=== PATIENT | female | born 1995 | race Caucasian/White ===

== ENCOUNTER 2017-12-25 17:34 | Emergency (ER) | payer OTHER ==
[2017-12-25 17:45] VITALS: BMI 24.7
[2017-12-25 17:47] VITALS: BP 124/90; PULSE 99; RESP 22; TEMP 97.6; O2SAT 100
--- NOTE | 2017-12-25 18:47 | ED PDOC ---
Arrival/HPI - General Chief Complaint: Anxiety Time Seen by Provider: 12/25/17 18:46 Historian: Patient, Spouse, Family - History of Present Illness Narrative History of Present Illness (Text): 12/25/17 18:30 This 22 yo female with pmh anxiety, anemia, presents to this Emergency department with her complaining of anxiety x [employer]. Patient stated during a family argument, she developed anxiety, sob, and palpitation. Patient stated she "fainted". Patient admits similar symptoms in the past and she was told she had panic attacks. Patient is refusing labs, Chest X-ray at this time. Patient denies cp, vivas, fever, leg swelling, urinary symptoms, calf pain, nausea, or vomiting. Time/Duration: Other Context: Home Past Medical History - Provider Review Nursing Documentation Reviewed: Yes - Infectious Disease Hx of Infectious Diseases: None - Hematological/Oncological Hx Anemia: Yes Other/Comment: iron deficiency - Genitourinary/Gynecological Hx Urinary Tract Infection: Yes - Psychiatric Hx Substance Use: No Family/Social History - Physician Review Nursing Documentation Reviewed: Yes Smoking Status: Never Smoked Hx Alcohol Use: No Hx Substance Use: No Allergies/Home Meds Allergies/Adverse Reactions: Allergies No Known Allergies Allergy (Verified 12/25/17 17:45) Review of Systems - Review of Systems Constitutional: Normal. absent: Fatigue, Weight Change, Fevers Eyes: Normal ENT: Normal Respiratory: SOB. absent: Cough, Sputum, Wheezing Cardiovascular: Syncope. absent: Chest Pain, Edema, Calf Pain Gastrointestinal: Normal. absent: Abdominal Pain, Nausea Genitourinary Female: Normal. absent: Dysuria, Frequency, Hematuria Musculoskeletal: Normal Skin: Normal Neurological: Normal Endocrine: Normal Hemo/Lymphatic: Normal Psychiatric: Normal Physical Exam Vital Signs Temp Pulse Resp BP Pulse Ox 12/25/17 17:46 97.6 F 99 H 22 124/90 100 Temperature: Afebrile Blood Pressure: Normal Pulse: Regular Respiratory Rate: Normal Appearance: Positive for: Well-Appearing, Non-Toxic, Comfortable Pain Distress: None Mental Status: Positive for: Alert and Oriented X 3 - Systems Exam Head: Present: Atraumatic, Normocephalic Pupils: Present: PERRL Extroacular Muscles: Present: EOMI Conjunctiva: Present: Normal Mouth: Present: Moist Mucous Membranes Neck: Present: Normal Range of Motion Respiratory/Chest: Present: Clear to Auscultation, Good Air Exchange. No: Respiratory Distress, Accessory Muscle Use Cardiovascular: Present: Regular Rate and Rhythm, Normal S1, S2. No: Murmurs Abdomen: Present: Normal Bowel Sounds. No: Tenderness, Distention, Peritoneal Signs Back: Present: Normal Inspection Upper Extremity: Present: Normal Inspection. No: Cyanosis, Edema Lower Extremity: Present: Normal Inspection. No: Edema Neurological: Present: GCS=15, CN II-XII Intact, Speech Normal Skin: Present: Warm, Dry, Normal Color. No: Rashes Psychiatric: Present: Alert, Oriented x 3, Anxious. No: Suicidal Ideation, Homicidal Ideation, Delusional, Hallucinations, Intoxicated Medical Decision Making ED Course and Treatment: 12/25/17 19:08 Patient stated her symptoms have improved and she would like to have an EKG. She is refusing labs, cxr, or PES evaluation. She wants to sign AMA 12/25/17 19:09 Leaving Against Medical Advice (AMA): This patient is choosing to leave against medical advice. I have personally explained to the patient that choosing to do so may result in permanent bodily harm or . I have discussed at great length that without further evaluation and monitoring there may be unforeseen circumstances and/or deterioration causing permanent bodily harm or as a result of their choice. The patient is alert, oriented, and shows the mental capacity to make clear decisions regarding the patients health care at this time. The patient continues to wish to leave against medical advice. In light of the patients decision to leave AMA, follow-up has been recommended and the patient is aware of the importance of following up as instructed. The patient has been advised that they should return to the ED immediately if they change their mind at any time, or if their condition begins to change or worsen in any way. - RAD Interpretation Radiology Orders: 12/25/17 19:01 CHEST PORTABLE [RAD] Stat - EKG Interpretation Interpreted by ED Physician: Yes (Sinus tachycardia @ 104 bpm. Normal interval. No ST changes) Type: 12 lead EKG Comparison: No previous EKG avail. Disposition/Present on Arrival - Present on Arrival Any Indicators Present on Arrival: No History of DVT/PE: No History of Uncontrolled Diabetes: No Urinary Catheter: No History of Decub. Ulcer: No History Surgical Site Infection Following: None - Disposition Have Diagnosis and Disposition been Completed?: Yes Diagnosis: Anxiety, History of fainting Disposition: AGAINST MEDICAL ADVICE Disposition Time: 19:10 Condition: UNKNOWN Additional Instructions: return to emergency at any time for further evaluation Referrals: [facility] [Outside] - Follow up with primary [facility] [[facility]] - Follow up with primary Forms: [employer] ([place])
--- NOTE | 2017-12-26 10:38 | CARD ---
APPROVED REPORT EKG Measurement Heart [id number] <Conclusion> Sinus tachycardia Otherwise normal ECG
== END 2017-12-25 19:40 | disposition left against medical advice (07) ==
LOC: ED 17:34
DX: F41.9 Anxiety disorder, unspecified (principal); R55 Syncope and collapse

== ENCOUNTER 2018-10-18 10:04 | Outpatient (CLI) | payer OTHER | END 2018-10-18 10:05 | disposition home or self-care (01) | LOC: RAD 10:04 ==

== ENCOUNTER 2019-02-17 08:57 | Emergency (ER) | payer OTHER ==
[2019-02-17 09:08] VITALS: BMI 25.6
[2019-02-17 09:18] VITALS: RESP 18; TEMP 98.5
--- NOTE | 2019-02-17 09:25 | ED PDOC ---
Arrival/HPI - General Chief Complaint: Flu-like Symptoms Time Seen by Provider: 02/17/19 09:04 Historian: Patient - History of Present Illness Narrative History of Present Illness (Text): 02/17/19 09:55 24 y/o female with no significant PMH presents to the ED c/o subjective fever x 2 days. Associated sore throat, headache, dry cough, intermittent dysuria. Headache is mild, dull, frontal. Positive sick contact of who was sick with the same illness. No recent travel. Denies abdominal pain, nausea, vomiting, diarrhea, back pain, neck pain/stiffness, SOB, chest pain, dizziness, vision changes, numbness, weakness, paresthesias, or any other associated symptoms. Past Medical History - Provider Review Nursing Documentation Reviewed: Yes Primary Care Provider: Vamsi Anand - Infectious Disease Hx of Infectious Diseases: None - Hematological/Oncological Hx Anemia: Yes Other/Comment: iron deficiency - Genitourinary/Gynecological Hx Urinary Tract Infection: Yes - Psychiatric Hx Substance Use: No Family/Social History - Physician Review Nursing Documentation Reviewed: Yes Family/Social History: No Known Family HX Smoking Status: Never Smoked Hx Alcohol Use: No Hx Substance Use: No Allergies/Home Meds Allergies/Adverse Reactions: Allergies Penicillins Allergy (Verified 02/17/19 09:07) RASH Review of Systems - Review of Systems Constitutional: Fevers Eyes: Normal. absent: Vision Changes, Photophobia ENT: Sore Throat, Sinus Congestion Respiratory: Cough, Sputum. absent: SOB Cardiovascular: Normal. absent: Chest Pain, Palpitations, Syncope Gastrointestinal: Normal. absent: Abdominal Pain, Nausea, Vomiting Genitourinary Female: Dysuria. absent: Frequency, Vaginal Bleeding, Vaginal Discharge Musculoskeletal: Normal. absent: Back Pain, Neck Pain Skin: Normal. absent: Rash Neurological: Headache. absent: Dizziness, Focal Weakness Physical Exam Vital Signs Reviewed: Yes Vital Signs Temp Pulse Resp BP Pulse Ox 02/17/19 09:08 98.5 F 104 H 18 95/67 L 97 Temperature: Afebrile Blood Pressure: Hypotensive Pulse: Tachycardic Respiratory Rate: Normal Appearance: Positive for: Well-Appearing, Non-Toxic, Comfortable Pain Distress: None Mental Status: Positive for: Alert and Oriented X 3 - Systems Exam Head: Present: Atraumatic, Normocephalic Pupils: Present: PERRL Extroacular Muscles: Present: EOMI Conjunctiva: Present: Normal Ears: Present: Normal, NORMAL TM, Normal Canal Mouth: Present: Moist Mucous Membranes Pharnyx: Present: Normal. No: ERYTHEMA, EXUDATE, TONSILS ENLARGED, Peritonsilar Swelling, Uvular Deviation, Muffled/Hoarse Voice, Strider, Other (no drooling or tripoding) Neck: Present: Normal Range of Motion. No: Meningeal Signs Respiratory/Chest: Present: Clear to Auscultation, Good Air Exchange. No: Respiratory Distress, Accessory Muscle Use Cardiovascular: Present: Regular Rate and Rhythm, Normal S1, S2, Peripheal Pulses Present Abdomen: Present: Normal Bowel Sounds. No: Tenderness, Distention, Peritoneal Signs, Rebound, Guarding Back: Present: Normal Inspection. No: CVA Tenderness Upper Extremity: Present: Normal Inspection, Normal ROM, NORMAL PULSES, Neurovascularly Intact, Capillary Refill < 2s. No: Cyanosis, Edema, Temperature Abnormalties Lower Extremity: Present: Normal Inspection, NORMAL PULSES, Normal ROM, Neurovascularly Intact. No: Edema, Temperature Abnormalties Neurological: Present: GCS=15, CN II-XII Intact, Speech Normal, Normal Sensory Function, Gait Normal Skin: Present: Warm, Dry, Normal Color. No: Rashes Lymphatic: No: Cervical Adenopathy Psychiatric: Present: Alert, Oriented x 3, Normal Insight, Normal Concentration, Normal Affect, Normal Mood Medical Decision Making ED Course and Treatment: 02/17/19 09:52 Initial Plan: * Rapid strep * Rapid flu * CXR * UA * POC preg * Tylenol * PO hydration Repeat BP normal, 129/85 Rapid strep negative Rapid flu negative CXR shows no active disease as read by me UA shows blood, trace leukocytes. No clear UTI, will culture. Vitals have improved since triage. Pt most likely with viral upper respiratory infection. Advised PMD followup and supportive care measures. 02/17/19 11:48 Diagnostic testing results and plan of care discussed with patient. Strict instructions given regarding prescription use, importance of followup, and signs/symptoms to return to ER including SOB, chest pain, vomiting, or any other new/worsening symptoms. Pt verbalized understanding of discussion. Patient is A&Ox3, ambulating with steady gait, with vital signs stable for discharge. - Lab Interpretations Lab Results: Lab Results 02/17/19 09:42: Urine Color Yellow, Urine Appearance Sl cloudy, Urine pH 6.5, Ur Specific [place] 1.020, Urine Protein Negative, Urine Glucose (UA) Negative, Urine Ketones Negative, Urine Blood Moderate H, Urine Nitrate Negative, Urine Bilirubin Negative, Urine Urobilinogen 1.0 H, Ur Leukocyte Esterase Trace H, Urine RBC 20 - 25 H, Urine WBC 2 - 5, Ur Epithelial Cells 6 - 8 H, Amorphous Sediment Few, Urine Bacteria Many, Urine Other Fiber 02/17/19 09:42: Grp A Beta Strep Ag Negative 02/17/19 09:24: Influenza Typ A,B (EIA) Negative for flu a/b I have reviewed the lab results: Yes - RAD Interpretation Hide Splitter: Radiologist Disposition/Present on Arrival - Present on Arrival Any Indicators Present on Arrival: No History of DVT/PE: No History of Uncontrolled Diabetes: No Urinary Catheter: No History of Decub. Ulcer: No History Surgical Site Infection Following: None - Disposition Have Diagnosis and Disposition been Completed?: Yes Diagnosis: Viral syndrome, Upper respiratory infection Disposition: HOME/ ROUTINE Disposition Time: 11:25 Patient Plan: Discharge Condition: IMPROVED Discharge Instructions (ExitCare): Viral Pharyngitis, Viral Syndrome (DC) Additional Instructions: Tessalon perles every 8 hours as needed Flonase 2 sprays in each nostril daily Cepacol as needed, take as directed Ibuprofen/tylenol for fever Increase fluids Rest, no strenuous activity Followup with primary within 2 days Return to ER with any new/worsening symptoms Prescriptions: Benzocaine/Menthol [Cepacol Sore Throat] 1 colette MM Q4 #12 colette Benzonatate [Tessalon Perle] 100 mg PO Q8H PRN #15 capsule PRN Reason: Cough Fluticasone Propionate [Flonase] 2 spr NS DAILY #1 bottle Referrals: at [facility] [place] [Outside] - Follow up with primary Ann Marie Clarke MD [Medical Doctor] - Follow up with primary Forms: [employer] (Greenlandic), WORK NOTE
[2019-02-17 09:53] VITALS: O2SAT 100
[2019-02-17 10:16] LABS: PH,URINE 6.5 (4.7-8.0); URINE BILIRUBIN NEGATIVE (NEGATIVE); URINE BLOOD MODERATE (NEGATIVE); URINE GLUCOSE (UA) NEGATIVE (NEGATIVE); URINE LEUKOCYTE ESTERASE TRACE Leu/uL (NEGATIVE); URINE PROTEIN NEGATIVE mg/dL (<30 mg/dL)
[2019-02-17 10:24] LABS: URINE APPEARANCE SL CLOUDY (CLEAR); URINE COLOR YELLOW (YELLOW)
[2019-02-17 11:05] LABS: URINE RBC 20 - 25 /hpf (0-2)
[2019-02-17 11:06] LABS: URINE AMORPHOUS SEDIMENT FEW /hpf; URINE BACTERIA MANY /hpf
[2019-02-17 12:03] VITALS: BP 124/83; PULSE 98
--- NOTE | 2019-02-17 13:06 | RAD ---
Date of service: 02/17/2019 HISTORY: cough, fever COMPARISON: No prior. TECHNIQUE: Chest PA and lateral views FINDINGS: LUNGS: No active pulmonary disease. PLEURA: No significant pleural effusion identified. No pneumothorax apparent. CARDIOVASCULAR: No aortic atherosclerotic calcification present. Normal cardiac size. No pulmonary vascular congestion. OSSEOUS STRUCTURES: No significant abnormalities. VISUALIZED UPPER ABDOMEN: Normal. OTHER FINDINGS: None. IMPRESSION: No active disease.
== END 2019-02-17 12:04 | disposition home or self-care (01) ==
LOC: ED 08:57
DX: J06.9 Acute upper respiratory infection, unspecified (principal)